=== PATIENT | female | born 1990 | race Caucasian/White ===

== ENCOUNTER 2019-12-24 05:49 | Inpatient (IN) ==
[2019-12-24] MEDS ORDERED: OXYTOCIN 30 UNITS/500 ML BAG IV PRN ×3 (06:34→16:59)
[2019-12-24 06:50] LABS: Hematocrit (blood only) 39.9 % (37-47); Hemoglobin 13.9 g/dL (12.0-16.0); Mean Corpuscular Hemoglobin 31.4 pg (25-34); Mean Corpuscular Volume 90.1 fL (80-100); Mean Platelet Volume 10.9 fL (7.4-10.4); Platelet Count 198 K/uL (130-400); RDW Coefficient of Variation 12.6 % (11.5-14.5); Red Blood Count 4.43 M/uL (4.2-5.4); White Blood Count 10.62 K/uL (4.8-10.8)
[2019-12-24 06:53] LABS: Mean Corpuscular Hgb Conc 34.8 g/dL (32-36)
[2019-12-24] MEDS: LACTATED RINGER'S 1,000 ML IV PRN ×2 (07:35→11:46)
--- NOTE | 2019-12-24 07:36 | History & Physical Report ---
Date of Service December 24, 2019 Assessment & Plan (1) Spontaneous rupture of membranes: 29 yo at 37.4 wks with SROM, contractions and cervical change VSS Afebrile FHR reassuring GBS negative Plan to monitor, IVF, Epidural for pain Anticipate (2) Uterine contractions at greater than 20 weeks of gestation: History of Present Illness Primary Care Provider: NO PCP Patient is a 29 yo at 37.4 wk who came in this morning with SROM at 0445 and cxs started right after, admitted by Dr Rios Now they are regular and painful and asking for epidural for pain It has been clear, no VB +FM Her has been uncomplicated GBS negative Allergies Allergy/AdvReac Type Severity Reaction Status Date / Time No Known Allergies Allergy Verified 06/06/19 21:00 Home Medications Home Medications Medication Instructions Recorded Confirmed Type Zyrtec 10 mg PO HS 02/05/19 12/24/19 History albuterol sulfate 1 inh INHALATION QID PRN 02/05/19 12/24/19 History montelukast [Singulair] 10 mg PO HS 02/05/19 12/24/19 History PNV cmb#95-ferrous fumarate-FA 1 tab PO HS 06/06/19 12/24/19 History [] Patient History Medical History Anxiety Asthma rarely needs PRN INH. Last used 2 months ago IBS (irritable bowel syndrome) Surgical History History of anesthesia problem woke up during wisdom tooth extraction History of colonoscopy History of esophagogastroduodenoscopy (EGD) History of right inguinal hernia repair History of wisdom tooth extraction Status post correction of deviated nasal septum Family History Mother Family history of reaction to anesthesia PONV Social History Preferred Language: [place] Leone[place] Communication Ability: Effective Web Marketing Assistant Required: No Beliefs That Will Affect Care: None marital status: Current Living Situation: Spouse Other Information That Helps Us Care for You: No Feels Safe at Home: Yes Safety Concerns: Feels Safe At This Time Smoking Status: Never smoker Second Hand Exposure: No ; Hx Alcohol Use: No 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 No h/o STD's, no HSV/ Chlamydia/ GC Review of Systems All systems reviewed & are unremarkable except as noted in HPI & below Physical Exam Constitutional: WD/WN, vitals as above well developed and + acute distress (painful with contractions) Genitourinary: normal external appearance (leaking clear fluids) OB Exam Abdomen: + vertex Manual OB Exam: + cervical dilation 3 cm, + cervical effacement 60% and + station -2 OB Exam Monitor Tracing: + external uterine monitor used and + category I Results & Data Vital Signs (Past 12 Hours) Vital Signs Temp Pulse Resp BP 12/24/19 07:08 61 134/62 12/24/19 06:06 36.9 C 67 20 131/81 12/24/19 06:03 36.9 C 67 20 131/81 Laboratory Results Lab Results 12/24/19 12/24/19 Range/Units 06:41 06:45 WBC 10.62 (4.8-10.8) K/uL RBC 4.43 (4.2-5.4) M/uL Hgb 13.9 (12.0-16.0) g/dL Hct 39.9 (37-47) % MCV 90.1 (80-100) fL MCH 31.4 (25-34) pg MCHC 34.8 (32-36) g/dL RDW Std Deviation 41.0 (36.4-46.3) fL RDW Coeff of Tamia 12.6 (11.5-14.5) % Plt Count 198 (130-400) K/uL MPV 10.9 H (7.4-10.4) fL SARS-CoV-2 RNA (RT-PCR) Cancelled
[2019-12-24] MEDS ORDERED: ePHEDrine sulfate 50 MG/ML AMP ONE (07:41)
[2019-12-24] MEDS ORDERED: fentaNYL citrate 100 MCG/2 ML VIAL ONE (07:42)
[2019-12-24] MEDS ORDERED: BUPIVACAINE 0.25% 30 ML VIAL ONE (07:42)
[2019-12-24] MEDS ORDERED: fentaNYL 2MCG/ML ROPIV 1.25MG/ML 100 ML BAG EPI ONE (07:43)
[2019-12-24] MEDS ORDERED: ONDANSETRON INJ 2 MG/ML 2 ML VIAL IV PRN (08:02)
[2019-12-24] MEDS ORDERED: NALOXONE HCL 0.4 MG/1 ML VIAL/CARP IV PRN (08:02)
[2019-12-24] MEDS ORDERED: DiphenhydrAMINE HCL 50 MG/ML VIAL IV PRN (08:02)
[2019-12-24] MEDS ORDERED: NALOXONE HCL 1 MG in SODIUM CHLORIDE 0.9% 1000ML 1,000 ML IV PRN (08:02)
[2019-12-24] MEDS ORDERED: ePHEDrine sulfate 50 MG/ML AMP IV PRN (08:02)
--- NOTE | 2019-12-24 08:02 | Anesthesiology Consultation ---
Date of Service December 24, 2019 Assessment & Plan ASA ASA2 Proposed Anesthesia Anesthesia Type: Labor Epidural Risk / Benefits Reviewed With: PT / POA / Parent / Guardian, Accepts Plan and Informed Consent Obtained History Height/Weight Height: 5 ft 8 in Weight: 90.265 kg Allergies Allergy/AdvReac Type Severity Reaction Status Date / Time No Known Allergies Allergy Verified 06/06/19 21:00 Medications Home Medications Medication Instructions Recorded Confirmed Last Taken Zyrtec 10 mg PO HS 02/05/19 12/24/19 12/23/19 20:00 albuterol sulfate 1 inh INHALATION QID PRN 02/05/19 12/24/19 1 Month Ago ~01/09/19 montelukast [Singulair] 10 mg PO HS 02/05/19 12/24/19 12/23/19 20:00 PNV cmb#95-ferrous fumarate-FA 1 tab PO HS 06/06/19 12/24/19 12/23/19 20:00 [] Active Medications Generic Name Dose Route Start Last Admin Trade Name Freq PRN Reason Stop Dose Admin Lactated Ringer's 1,000 mls @ 150 mls/hr 12/24/19 06:34 12/24/19 08:04 Lr IV 12/26/19 06:33 125 mls/hr .[id number] PRN Infusion L&D Protocol Protocol Ropivacaine 100 ml 12/24/19 08:02 12/24/19 08:23 Epidural (L&D) EPI 12/25/19 08:01 100 ml PRN PRN Administration Pain R/T Labor Protocol Past Medical History Medical History Anxiety Asthma rarely needs PRN INH. Last used 2 months ago IBS (irritable bowel syndrome) Exercise / Class Metabolic Activity II 4-5 Yardwork/Stairs/Walk up hill Past Family History Family History Mother Family history of reaction to anesthesia PONV Past Surgical History Surgical History History of anesthesia problem woke up during wisdom tooth extraction History of colonoscopy History of esophagogastroduodenoscopy (EGD) History of right inguinal hernia repair History of wisdom tooth extraction Status post correction of deviated nasal septum Past Anesthesia History No Hx of Anesthesia Complications and No Family Hx of Anesthesia Complications History of PONV No Hx of PONV and No Hx of Motion Sickness Social History Smoking Status: Never smoker Hx Alcohol Use: No alcohol intake frequency: holidays/special occasions only Hx Substance Use: No substance use type: does not use Review of Systems denies fever/cough/ colds/ chest pain/ SOB/ LUCITA Constitutional: no fever and no chills Respiratory: no cough and no dyspnea denies LUCITA Cardiovascular: no chest pain and no dyspnea on exertion Physical Exam Vital Signs Last Vital Signs Temp 36.9 C 12/24/19 06:06 Pulse 55 L 12/24/19 08:28 Resp 20 12/24/19 06:06 BP 113/62 12/24/19 08:27 Pulse Ox 100 12/24/19 08:28 ENMT Mouth: no TMJ abnormality and no dentition abnormality Thyromental Distance: > or= 3.5 Finger Breadths Mallampati Class: II Neck neck extension not limited Respiratory normal respiratory effort; no respiratory distress Auscultation: lungs clear to auscultation bilaterally Cardiovascular Rate/Rhythm: regular rate and regular rhythm Neurologic moves all extremities Psychiatric Orientation: alert and oriented x 3 Testing Laboratory Results 12/24/19 06:41
[2019-12-24] MEDS: fentaNYL 2MCG/ML ROPIV 1.25MG/ML 100 ML BAG EPI PRN ×2 (08:23→14:35)
--- NOTE | 2019-12-24 13:00 | Obstetrical Progress Note ---
Date of Service December 24, 2019 Assessment & Plan Admission and Anticipated Discharge Date Admission Date: December 24, 2019 Subjective Patient is reevaluated She feels well, no complaints VSS Afebrile FHR categ I VE; 6/ 90%/ 0 Continue to monitor, anticipate Results & Data ([facility]) Vital Signs (Past 12 Hours) Vital Signs Temp Pulse Resp BP Pulse Ox 12/24/19 12:53 69 97 12/24/19 12:48 73 97 12/24/19 12:47 61 125/61 12/24/19 12:43 71 97 12/24/19 12:38 66 98 12/24/19 12:33 66 98 12/24/19 12:31 70 120/70 12/24/19 12:28 66 98 12/24/19 12:23 69 99 12/24/19 12:18 63 99 12/24/19 12:16 73 126/73 12/24/19 12:13 67 99 12/24/19 12:08 64 99 12/24/19 12:03 64 98 12/24/19 12:00 66 127/80 12/24/19 11:58 65 99 12/24/19 11:53 61 99 12/24/19 11:48 68 99 12/24/19 11:46 64 124/74 12/24/19 11:43 65 98 12/24/19 11:38 63 100 12/24/19 11:33 65 100 12/24/19 11:31 85 117/75 12/24/19 11:30 37.2 C 12/24/19 11:28 66 100 12/24/19 11:23 66 100 12/24/19 11:18 73 100 12/24/19 11:16 60 116/68 12/24/19 11:13 64 100 12/24/19 11:08 61 100 12/24/19 11:03 55 L 100 12/24/19 11:00 57 L 115/61 12/24/19 10:58 74 100 12/24/19 10:53 62 100 12/24/19 10:48 59 L 100 12/24/19 10:45 69 113/62 12/24/19 10:43 65 100 12/24/19 10:38 56 L 100 12/24/19 10:33 57 L 100 12/24/19 10:30 56 L 109/56 L 12/24/19 10:28 58 L 100 12/24/19 10:23 60 100 12/24/19 10:18 60 100 12/24/19 10:15 62 109/63 12/24/19 10:13 60 100 12/24/19 10:08 59 L 100 12/24/19 10:03 59 L 112/62 100 12/24/19 09:58 64 100 12/24/19 09:53 67 100 12/24/19 09:48 57 L 100 12/24/19 09:46 75 18 121/69 12/24/19 09:43 59 L 100 12/24/19 09:38 64 100 12/24/19 09:33 80 100 12/24/19 09:32 63 16 115/79 12/24/19 09:28 62 100 12/24/19 09:23 60 99 12/24/19 09:18 66 100 12/24/19 09:16 72 18 133/75 12/24/19 09:13 61 100 12/24/19 09:08 66 100 12/24/19 09:03 59 L 100 12/24/19 09:00 57 L 18 124/77 12/24/19 08:58 58 L 100 12/24/19 08:57 59 L 124/76 12/24/19 08:53 64 131/79 100 12/24/19 08:48 56 L 105/77 100 12/24/19 08:45 18 12/24/19 08:43 61 100 12/24/19 08:42 59 L 124/74 12/24/19 08:40 18 12/24/19 08:38 54 L 100 12/24/19 08:37 54 L 119/73 12/24/19 08:35 18 12/24/19 08:33 53 L 99 12/24/19 08:31 59 L 116/69 12/24/19 08:30 18 12/24/19 08:29 54 L 111/60 12/24/19 08:28 55 L 100 12/24/19 08:27 56 L 113/62 12/24/19 08:25 61 111/65 12/24/19 08:23 59 L 113/60 100 12/24/19 08:22 57 L 111/55 L 12/24/19 08:18 65 100 12/24/19 08:16 65 117/56 L 12/24/19 08:13 56 L 99 12/24/19 08:08 70 99 12/24/19 08:07 2 L 79 L 12/24/19 07:08 61 134/62 12/24/19 06:06 36.9 C 67 20 131/81 12/24/19 06:03 36.9 C 67 20 131/81
--- NOTE | 2019-12-24 15:59 | Obstetrical Progress Note ---
Date of Service December 24, 2019 Assessment & Plan Admission and Anticipated Discharge Date Admission Date: December 24, 2019 Subjective Patient was found to be fully dilated at +2 station and desired to push Pushed only 2 times and vertex is visIble from introitus at+3 station FHR categ I Continue to monitor Anticipate Results & Data ([facility]) Vital Signs (Past 12 Hours) Vital Signs Temp Pulse Resp BP Pulse Ox 12/24/19 15:54 136 H 99 12/24/19 15:49 92 H 100 12/24/19 15:48 108 H 88 L 12/24/19 15:45 98 H 122/58 L 12/24/19 15:43 89 99 12/24/19 15:38 70 100 12/24/19 15:33 70 100 12/24/19 15:32 80 131/61 12/24/19 15:28 68 100 12/24/19 15:23 67 99 12/24/19 15:18 60 123/56 L 100 12/24/19 15:13 64 100 12/24/19 15:08 64 100 12/24/19 15:03 65 100 12/24/19 15:01 57 L 18 116/66 12/24/19 14:58 65 96 12/24/19 14:53 59 L 100 12/24/19 14:48 59 L 100 12/24/19 14:47 62 113/67 12/24/19 14:43 81 100 12/24/19 14:38 64 100 12/24/19 14:33 67 100 12/24/19 14:31 68 124/69 12/24/19 14:28 78 100 12/24/19 14:23 60 100 12/24/19 14:18 66 99 12/24/19 14:15 68 111/67 12/24/19 14:13 68 100 12/24/19 14:08 78 99 12/24/19 14:03 75 99 12/24/19 14:00 76 18 121/61 12/24/19 13:58 68 98 12/24/19 13:53 63 98 12/24/19 13:48 70 98 12/24/19 13:45 59 L 128/67 12/24/19 13:43 65 98 12/24/19 13:38 68 97 12/24/19 13:33 64 98 12/24/19 13:31 67 125/66 12/24/19 13:28 81 99 12/24/19 13:23 63 98 12/24/19 13:18 76 99 12/24/19 13:15 61 132/70 12/24/19 13:13 68 98 12/24/19 13:08 64 99 12/24/19 13:03 74 98 12/24/19 13:02 67 115/69 12/24/19 13:00 18 12/24/19 12:58 69 99 12/24/19 12:53 69 97 12/24/19 12:48 73 97 12/24/19 12:47 61 125/61 12/24/19 12:43 71 97 12/24/19 12:38 66 98 12/24/19 12:33 66 98 12/24/19 12:31 70 120/70 12/24/19 12:28 66 98 12/24/19 12:23 69 99 12/24/19 12:18 63 99 12/24/19 12:16 73 126/73 12/24/19 12:13 67 99 12/24/19 12:08 64 99 12/24/19 12:03 64 98 12/24/19 12:00 66 18 127/80 12/24/19 11:58 65 99 12/24/19 11:53 61 99 12/24/19 11:48 68 99 12/24/19 11:46 64 124/74 12/24/19 11:43 65 98 12/24/19 11:38 63 100 12/24/19 11:33 65 100 12/24/19 11:31 85 117/75 12/24/19 11:30 37.2 C 12/24/19 11:28 66 100 12/24/19 11:23 66 100 12/24/19 11:18 73 100 12/24/19 11:16 60 116/68 12/24/19 11:13 64 100 12/24/19 11:08 61 100 12/24/19 11:03 55 L 100 12/24/19 11:00 57 L 18 115/61 12/24/19 10:58 74 100 12/24/19 10:53 62 100 12/24/19 10:48 59 L 100 12/24/19 10:45 69 113/62 12/24/19 10:43 65 100 07/09/20 10:38 56 L 100 12/24/19 10:33 57 L 100 12/24/19 10:30 56 L 109/56 L 12/24/19 10:28 58 L 100 12/24/19 10:23 60 100 12/24/19 10:18 60 100 12/24/19 10:15 62 109/63 12/24/19 10:13 60 100 12/24/19 10:08 59 L 100 12/24/19 10:03 59 L 112/62 100 12/24/19 10:00 18 12/24/19 09:58 64 100 12/24/19 09:53 67 100 12/24/19 09:48 57 L 100 12/24/19 09:46 75 18 121/69 12/24/19 09:43 59 L 100 12/24/19 09:38 64 100 12/24/19 09:33 80 100 12/24/19 09:32 63 16 115/79 12/24/19 09:28 62 100 12/24/19 09:23 60 99 12/24/19 09:18 66 100 12/24/19 09:16 72 18 133/75 12/24/19 09:13 61 100 12/24/19 09:08 66 100 12/24/19 09:03 59 L 100 12/24/19 09:00 57 L 18 124/77 12/24/19 08:58 58 L 100 12/24/19 08:57 59 L 124/76 12/24/19 08:53 64 131/79 100 12/24/19 08:48 56 L 105/77 100 12/24/19 08:45 18 12/24/19 08:43 61 100 12/24/19 08:42 59 L 124/74 12/24/19 08:40 18 12/24/19 08:38 54 L 100 12/24/19 08:37 54 L 119/73 12/24/19 08:35 18 12/24/19 08:33 53 L 99 12/24/19 08:31 59 L 116/69 12/24/19 08:30 18 12/24/19 08:29 54 L 111/60 12/24/19 08:28 55 L 100 12/24/19 08:27 56 L 113/62 12/24/19 08:25 61 111/65 12/24/19 08:23 59 L 113/60 100 12/24/19 08:22 57 L 111/55 L 12/24/19 08:18 65 100 12/24/19 08:16 65 117/56 L 12/24/19 08:13 56 L 99 12/24/19 08:08 70 99 12/24/19 08:07 2 L 79 L 12/24/19 07:08 61 134/62 12/24/19 06:06 36.9 C 67 20 131/81 12/24/19 06:03 36.9 C 67 20 131/81
[2019-12-24] MEDS ORDERED: HYDROCORTISONE ACETATE 25 MG SUPP PR PRN (16:59)
[2019-12-24] MEDS ORDERED: ACETAMINOPHEN 325 MG TAB PO PRN (16:59)
[2019-12-24] MEDS ORDERED: SUPERCREAM 0.870% 15 GM JAR EXT PRN (16:59)
[2019-12-24] MEDS ORDERED: bisacodyL 10 MG SUPP PR PRN (16:59)
[2019-12-24] MEDS ORDERED: BENZOCAINE 20% AER SPR 82.5 GM CAN EXT PRN (16:59)
[2019-12-24] MEDS: IBUPROFEN 600 MG TAB PO PRN ×2 (17:26→22:44)
--- NOTE | 2019-12-24 17:36 | Delivery Summary ---
DATE OF OPERATION: 12/24/2019 TIME OF DELIVERY OF BABY: 1620 p.m. DETAILS OF DELIVERY: The patient was found to be fully dilated and desired to push. She pushed for about half an hour and delivered the head without difficulty. Shoulders came after with the same push and baby was handed off to the mother where mouth and nose were suctioned. Cord was clamped x2 and cut at 1 minute delay. Cord blood was obtained. Vagina and perineum were checked for lacerations. There was a second-degree perineal laceration at the posterior fourchette extending into the posterior and right vaginal wall, and rectal exam was done. Excellent sphincter tone was noted and the perineal body muscles around the sphincter were held with Allis clamp, reinforced with [id number] stitches x3, and the rectal exam was repeated and excellent tone was still noted and no sutures were felt. Gloves were changed. Vagina mucosa was repaired with 2-0 Vicryl in a running fashion, skin in a subcuticular fashion and then placenta was found to be in the vagina, delivered spontaneously as intact and complete, and lower segment was cleared of all clots and debris. Fundus was firm. EBL was 300 mL. Mom and baby tolerated the procedure well. Sponge, lap, needle, instrument count was correct x2. Baby was a viable female infant, Apgars 9/9, weight is 2795 gr.. No complications happened and I was present during whole procedure. I attest to the content of the Intraoperative Record and any orders documented therein. Any exceptions are noted below. MTDD
--- NOTE | 2019-12-24 17:41 | Anesthesia Procedure Note ---
Date of Service December 24, 2019 Anesthesia Post Epidural Note Vital Signs Vital Signs: Temp Pulse Resp BP Pulse Ox 37.2 C 82 18 133/76 99 12/24/19 11:30 12/24/19 17:36 12/24/19 15:01 12/24/19 17:36 12/24/19 16:54 Pain Intensity Lower Back: Pain Intensity: 0 Notes Mental Status: alert / awake / arousable Nausea / Vomiting: adequately controlled Pain: adequately controlled Airway Patency, RR, SpO2: stable & adequate BP & HR: stable & adequate Hydration State: stable & adequate Neuraxial Anesthesia: was administered and sensory block is resolving Anesthetic Complications: no major complications apparent and Pt Satisfied with anesthetic care Epidural: Removed without complications and With tip intact
[2019-12-24] MEDS: DOCUSATE SODIUM 100 MG CAP PO SCH (20:23)
[2019-12-25] MEDS: OXYCODONE/ACETAMINOPHEN 5mg/325mg TAB PO PRN ×2 (00:47→04:44)
[2019-12-25] MEDS: IBUPROFEN 600 MG TAB PO PRN ×3 (04:43→19:07)
[2019-12-25 06:13] LABS: Hemoglobin 11.1 g/dL (12.0-16.0); Mean Corpuscular Hemoglobin 31.3 pg (25-34); Mean Corpuscular Hgb Conc 33.6 g/dL (32-36); Mean Platelet Volume 10.9 fL (7.4-10.4); Platelet Count 130 K/uL (130-400); RDW Coefficient of Variation 12.8 % (11.5-14.5); RDW Standard Deviation 43.8 fL (36.4-46.3); Red Blood Count 3.55 M/uL (4.2-5.4); White Blood Count 12.14 K/uL (4.8-10.8)
[2019-12-25] MEDS: PRENATAL VITAMIN 1 TAB PO SCH (07:56)
[2019-12-25] MEDS: DOCUSATE SODIUM 100 MG CAP PO SCH ×2 (07:56→19:07)
[2019-12-25] MEDS ORDERED: FERROUS SULFATE 325 MG TAB PO SCH (08:00)
[2019-12-25] MEDS ORDERED: MEASLES, MUMPS & RUBELLA VIRUS VIAL SQ ONE (09:00)
[2019-12-25] MEDS ORDERED: DIPHTHERIA/TETANUS/PERTUSSIS 0.5 ML SYR/VIAL IM ONE (09:00)
--- NOTE | 2019-12-25 09:07 | Obstetrical Progress Note ---
Date of Service December 25, 2019 Assessment & Plan (1) Normal course: PPD #1 Pt doing well no complaints Subjective Ambulation: ambulating normally Voiding: no voiding problems Passing Gas:: Yes Diet Tolerance:: regular diet Lochia:: Small Feeding Type:: breast feeding Review of Systems All systems reviewed & are unremarkable except as noted in HPI & below Physical Exam Constitutional WD/WN, vitals as above well developed and well nourished Eyes PERRL, conjunctivae normal, anicteric sclerae Neck trachea midline, no thyromegaly Respiratory normal respiratory effort, lungs clear to auscultation Auscultation: no crackles, no rales and no wheezes Cardiovascular RRR, no murmur, no edema Gastrointestinal (Abdomen) normal bowel sounds, soft, nontender, no hepatosplenomegaly Uterus is below umbilicus Musculoskeletal no cyanosis or clubbing, extremities motor strength 5/5 Skin no rashes, warm and dry Neurologic patellar DTR's 2+ bilat, sensation intact Psychiatric A+Ox3, euthymic affect Genitourinary normal external appearance Results & Data Vital Signs (Past 12 Hours) Vital Signs Temp Pulse Resp BP Pulse Ox 12/25/19 04:30 36.6 C 59 L 15 130/86 99 12/24/19 23:25 36.7 C 70 16 122/78 98
[2019-12-25] MEDS ORDERED: bisacodyL 5 MG TABEC PO SCH (20:00)
[2019-12-26] MEDS: IBUPROFEN 600 MG TAB PO PRN ×3 (00:13→14:03)
[2019-12-26] MEDS: DOCUSATE SODIUM 100 MG CAP PO SCH (08:00)
[2019-12-26] MEDS: PRENATAL VITAMIN 1 TAB PO SCH (08:00)
--- NOTE | 2019-12-26 08:51 | Obstetrical Progress Note ---
Date of Service December 26, 2019 Assessment & Plan Admission and Anticipated Discharge Date Admission Date: December 24, 2019 Subjective PPD#2 stable plans to go home passing gas out of bed tolerating diet Physical Exam Constitutional: WD/WN, vitals as above comfortable abdomen soft non-tender no edema neg [facility] for d/c Results & Data ([facility]) Vital Signs (Past 12 Hours) Vital Signs Temp Pulse Resp BP 12/26/19 00:00 36.7 C 73 18 110/72 Laboratory Results Laboratory Results - last 72 hr 12/24/19 12/24/19 12/24/19 06:41 06:45 06:45 WBC 10.62 RBC 4.43 Hgb 13.9 Hct 39.9 MCV 90.1 MCH 31.4 MCHC 34.8 RDW Std Deviation 41.0 RDW Coeff of Tamia 12.6 Plt Count 198 MPV 10.9 H COVID-19 PCR NEGATIVE SARS-CoV-2 RNA (RT-PCR) Cancelled 12/25/19 05:30 WBC 12.14 H RBC 3.55 L Hgb 11.1 L Hct 33.0 L MCV 93.0 MCH 31.3 MCHC 33.6 RDW Std Deviation 43.8 RDW Coeff of Tamia 12.8 Plt Count 130 MPV 10.9 H COVID-19 PCR SARS-CoV-2 RNA (RT-PCR)
[2019-12-26 10:16] LABS: Hematocrit (blood only) 32.2 % (37-47); Hemoglobin 10.7 g/dL (12.0-16.0)
== END 2019-12-26 14:35 | disposition home or self-care (01) | DRG 807 ==
LOC: OPB 05:49 → 4S1 05:50 → 4S2 19:50